=== PATIENT | male | born 1960 | race Caucasian/White ===

== ENCOUNTER 2021-12-20 12:29 | Emergency (ER) | payer OTHER ==
[~2021-12-20] VITALS: Ht 175.3 cm; Wt 82.7 kg
[2021-12-20 12:30] VITALS: BP 131/94
[2021-12-20] MEDS ORDERED: KETOROLAC TROMETHAMINE 10 MG TAB PO ONE (14:30)
[2021-12-20] MEDS ORDERED: NAPR-837 PO (15:54)
== END 2021-12-20 16:02 | disposition home or self-care (01) ==
LOC: M ED 12:29
DX: M76.62 Achilles tendinitis, left leg (principal)

== ENCOUNTER → 2022-01-12 | Outpatient (CLI) | payer OTHER ==
[~2022-01-12] MED LIST: NAPR-837 PO
== END ==
LOC: M PLAIMG 14:58
PROVIDERS: ATTEND Orthopaedic Surgery Hand Surgery
DX: M79.672 Pain in left foot (principal)

== ENCOUNTER 2023-02-06 12:28 | Emergency (ER) | payer MEDICAID, OTHER ==
[~2023-02-06] VITALS: Ht 170.2 cm; Wt 80.9 kg
[2023-02-06] MEDS ORDERED: KETOROLAC 30 MG/ML 1ML VIAL IM ONE (15:45)
[2023-02-06 16:56] VITALS: BP 121/65; TEMP 97.8; O2SAT 98
== END 2023-02-06 17:08 | disposition home or self-care (01) ==
LOC: M ED 12:28
DX: M79.644 Pain in right finger(s) (principal); F12.10 Cannabis abuse, uncomplicated
CPT/HCPCS: 73140; 96372; 99283; J1885

== ENCOUNTER → 2023-03-13 | Outpatient (CLI) | payer MEDICAID | LOC: M SOG 07:50 | PROVIDERS: ATTEND Physician Assistant | DX: M79.644 Pain in right finger(s) (principal); M79.645 Pain in left finger(s); R22.32 Localized swelling, mass and lump, left upper limb ==

== ENCOUNTER 2023-04-27 08:09 | Day surgery (SDC) | payer OTHER ==
[~2023-04-27] VITALS: Ht 170.2 cm; Wt 80.7 kg
[~2023-04-27 08:09] MED LIST changes: +ceFAZolin SOD 2 GM in IV 1 EA IV ONE
[2023-04-27] MEDS ORDERED: LIDOCAINE W/EPINEPHRINE 1% 20ML VIAL XX ONE (11:00)
[2023-04-27] MEDS ORDERED: SODIUM BICARBONATE 8.4% INJ 50MEQ 50ML VIAL XX ONE (11:00)
[2023-04-27] MEDS ORDERED: LIDOCAINE 1% MDV 20ML VIAL XX ONE (12:20)
[2023-04-27] MEDS ORDERED: BACITRACIN OINTMENT 30GM TUBE As Ordered ONE (12:26)
[2023-04-27] MEDS ORDERED: OXYC1TAB23 PO (13:42)
[2023-04-27 13:54] VITALS: BP 141/100; TEMP 97.7; O2SAT 99
== END 2023-04-27 14:52 | disposition home or self-care (01) ==
LOC: M SDC 08:09
PROVIDERS: ATTEND Orthopaedic Surgery Hand Surgery
DX: M65.311 Trigger thumb, right thumb (principal); L60.8 Other nail disorders; M65.841 Other synovitis and tenosynovitis, right hand

== ENCOUNTER → 2023-06-01 | Outpatient (CLI) | payer OTHER ==
[~2023-06-01] MED LIST changes: +OXYC1TAB23 PO; -ceFAZolin SOD 2 GM in IV 1 EA IV ONE
[2023-06-01 13:15] LABS: BASO # 0.1 10^3/uL (0.0-0.2); BASO % 1.1 % (0.0-1.0); EOS # 0.1 10^3/uL (0.0-0.5); EOS % 1.6 % (0.0-3.0); HEMATOCRIT 49.7 % (42.0-52.0); HEMOGLOBIN 16.6 g/dl (13.5-17.5); LYMPH # 2.2 10^3/uL (1.5-5.0); LYMPH % 27.6 % (24.0-44.0); MEAN CORPUSCULAR HEMOGLOBIN 29.4 pg (27.0-33.0); MEAN CORPUSCULAR HGB CONC 33.4 g/dl (32.0-36.5); MONO # 0.5 10^3/uL (0.0-0.8); MONO % 6.3 % (2.0-8.0); NEUTROPHILS # 5.1 10^3/uL (1.5-8.5); PLATELET COUNT, AUTOMATED 235 10^3/uL (150-450); RED BLOOD COUNT 5.65 10^6/uL (4.30-6.10); WHITE BLOOD COUNT 8.1 10^3/uL (4.0-10.0)
[2023-06-01 13:39] LABS: ALKALINE PHOSPHATASE 91 U/L (46-116); ALT/SGPT 32 U/L (7.0-40); AST/SGOT 21 U/L (<34); BILIRUBIN,TOTAL 0.6 MG/DL (0.3-1.2); BLOOD UREA NITROGEN 20 MG/DL (9-23); CARBON DIOXIDE LEVEL 27 MMOL/L (20-31); CHLORIDE LEVEL 103 MMOL/L (98-107); CHOLESTEROL LEVEL 274 MG/DL (<200); CHOLESTEROL RISK RATIO 4.78 (<5); CREATININE FOR GFR 0.91 MG/DL (0.70-1.30); GLOMERULAR FILTRATION RATE > 60.0 (>49); GLUCOSE, FASTING 86 MG/DL (74-106); HDL CHOLESTEROL 57.3 MG/DL (>40); LDL CHOLESTEROL 184.5 MG/DL (<100); NON-HDL-C 216.7 MG/DL; POTASSIUM SERUM 4.2 MMOL/L (3.5-5.1); SODIUM LEVEL 139 MMOL/L (136-145); THYROID STIMULATING HORMONE 2.069 uIU/ML (0.55-4.78); TOTAL 25(OH) VITAMIN D 20.4 NG/ML (20.0-100.0); TOTAL PROTEIN 7.6 G/DL (5.7-8.2); TRIGLYCERIDES LEVEL 161 MG/DL (<150)
[2023-06-01 13:53] LABS: HEMOGLOBIN A1c 5.4 % (4.0-6.0)
== END ==
LOC: M PLALAB 10:19
PROVIDERS: ATTEND Nurse Practitioner Family
DX: E78.2 Mixed hyperlipidemia (principal); E55.9 Vitamin D deficiency, unspecified; F41.9 Anxiety disorder, unspecified; Z13.1 Encounter for screening for diabetes mellitus; Z12.5 Encounter for screening for malignant neoplasm of prostate

== ENCOUNTER 2023-06-27 11:12 | Day surgery (SDC) | payer OTHER ==
[~2023-06-27] VITALS: Ht 175.3 cm; Wt 81.2 kg
[~2023-06-27 11:12] MED LIST changes: +KETOROLAC 60MG 2ML VIAL As Ordered ONE; +LIDOCAINE 2% 100MG/5ML SDV (FOR ANES.) As Ordered ONE; +MIDAZOLAM INJ 2MG/2ML VIAL As Ordered ONE; +ONDANSETRON 4MG 2ML VIAL As Ordered ONE; +TUMS750C5 PO; +fentaNYL 100 MCG/2 ML INJECTION As Ordered ONE; +propofoL 200 MG/20 ML VIAL As Ordered ONE
[2023-06-27] MEDS ORDERED: LR 1,000 ML IV SCH (11:50)
[2023-06-27] MEDS ORDERED: SODIUM BICARBONATE 8.4% INJ 50MEQ 50ML VIAL XX ONE (12:15)
[2023-06-27] MEDS ORDERED: LIDOCAINE W/EPINEPHRINE 1% 20ML VIAL XX ONE (12:15)
[2023-06-27] MEDS ORDERED: BACITRACIN OINTMENT 30GM TUBE As Ordered ONE (12:35)
[2023-06-27] MEDS ORDERED: propofoL 200 MG/20 ML VIAL As Ordered ONE (13:38)
[2023-06-27 14:52] VITALS: BP 119/82; TEMP 98; O2SAT 97
== END 2023-06-27 18:08 | disposition home or self-care (01) ==
LOC: M SDC 11:12
PROVIDERS: ATTEND Orthopaedic Surgery Hand Surgery
DX: G56.01 Carpal tunnel syndrome, right upper limb (principal); M65.231 Calcific tendinitis, right forearm; F12.10 Cannabis abuse, uncomplicated; K21.9 Gastro-esophageal reflux disease without esophagitis
CPT/HCPCS: 26055; 29848; J1100; J1885; J2250; J2405; J3010

== ENCOUNTER → 2023-07-24 | Day surgery (SDC) | payer OTHER ==
[~2023-07-24] VITALS: Ht 170.2 cm; Wt 81.6 kg
[~2023-07-24] MED LIST changes: +ATOR1TAB21 PO; +BACITRACIN OINTMENT 30GM TUBE As Ordered ONE; -KETOROLAC 60MG 2ML VIAL As Ordered ONE; -LIDOCAINE 2% 100MG/5ML SDV (FOR ANES.) As Ordered ONE; +LIDOCAINE W/EPINEPHRINE 1% 20ML VIAL XX ONE; -MIDAZOLAM INJ 2MG/2ML VIAL As Ordered ONE; -ONDANSETRON 4MG 2ML VIAL As Ordered ONE; +SODIUM BICARBONATE 8.4% INJ 50MEQ 50ML VIAL XX ONE; -fentaNYL 100 MCG/2 ML INJECTION As Ordered ONE; -propofoL 200 MG/20 ML VIAL As Ordered ONE
== END | disposition home or self-care (01) ==
LOC: M SDC 06:57
PROVIDERS: ATTEND Orthopaedic Surgery Hand Surgery
DX: G56.02 Carpal tunnel syndrome, left upper limb (principal); Z53.09 Procedure and treatment not carried out because of other contraindication; R07.89 Other chest pain

== ENCOUNTER → 2023-08-29 | Outpatient (CLI) | payer MEDICARE, OTHER ==
[~2023-08-29] MED LIST changes: -BACITRACIN OINTMENT 30GM TUBE As Ordered ONE; -LIDOCAINE W/EPINEPHRINE 1% 20ML VIAL XX ONE; +NITR0.4S14 SL; -SODIUM BICARBONATE 8.4% INJ 50MEQ 50ML VIAL XX ONE
[2023-08-29 15:39] LABS: BASO # 0.1 10^3/uL (0.0-0.2); BASO % 0.8 % (0.0-1.0); EOS # 0.1 10^3/uL (0.0-0.5); EOS % 1.4 % (0.0-3.0); HEMATOCRIT 48.3 % (42.0-52.0); HEMOGLOBIN 16.3 g/dl (13.5-17.5); LYMPH # 2.5 10^3/uL (1.5-5.0); LYMPH % 29.7 % (24.0-44.0); MEAN CORPUSCULAR HEMOGLOBIN 29.5 pg (27.0-33.0); MEAN CORPUSCULAR HGB CONC 33.7 g/dl (32.0-36.5); MEAN CORPUSCULAR VOLUME 87.3 fl (80.0-96.0); MONO # 0.7 10^3/uL (0.0-0.8); MONO % 8.1 % (2.0-8.0); NEUTROPHILS % 59.6 % (36.0-66.0); PLATELET COUNT, AUTOMATED 261 10^3/uL (150-450); RED BLOOD COUNT 5.53 10^6/uL (4.30-6.10); WHITE BLOOD COUNT 8.3 10^3/uL (4.0-10.0)
[2023-08-29 16:23] LABS: THYROID STIMULATING HORMONE 2.621 uIU/ML (0.55-4.78)
[2023-08-29 16:51] LABS: HEMOGLOBIN A1c 5.5 % (4.0-6.0)
[2023-08-29 17:07] LABS: ALBUMIN 3.8 G/DL (3.2-5.2); ALKALINE PHOSPHATASE 97 U/L (46-116); ALT/SGPT 41 U/L (7.0-40); AST/SGOT 31 U/L (<34); BILIRUBIN,TOTAL 0.7 MG/DL (0.3-1.2); BLOOD UREA NITROGEN 18 MG/DL (9-23); CALCIUM LEVEL 9.3 MG/DL (8.3-10.6); CARBON DIOXIDE LEVEL 29 MMOL/L (20-31); CHLORIDE LEVEL 102 MMOL/L (98-107); CHOLESTEROL LEVEL 183 MG/DL (<200); CHOLESTEROL RISK RATIO 3.46 (<5); CREATININE FOR GFR 1.01 MG/DL (0.70-1.30); GLOMERULAR FILTRATION RATE > 60.0 (>49); GLUCOSE, FASTING 79 MG/DL (74-106); HDL CHOLESTEROL 52.8 MG/DL (>40); LDL CHOLESTEROL 101.2 MG/DL (<100); MAGNESIUM LEVEL 1.8 MG/DL (1.8-2.4); NON-HDL-C 130.2 MG/DL; SODIUM LEVEL 138 MMOL/L (136-145); TOTAL PROTEIN 7.4 G/DL (5.7-8.2); TRIGLYCERIDES LEVEL 145 MG/DL (<150)
== END ==
LOC: M PLALAB 12:10
PROVIDERS: ATTEND Internal Medicine Cardiovascular Disease
DX: R07.9 Chest pain, unspecified (principal); I11.0 Hypertensive heart disease with heart failure; I50.9 Heart failure, unspecified; E78.2 Mixed hyperlipidemia; I48.91 Unspecified atrial fibrillation; Z79.899 Other long term (current) drug therapy

== ENCOUNTER 2023-09-21 07:35 | Day surgery (SDC) | payer OTHER ==
[~2023-09-21] VITALS: Ht 170.2 cm; Wt 83.2 kg
[2023-09-21] MEDS ORDERED: LIDOCAINE 2% 100MG/5ML SDV (FOR ANES.) As Ordered ONE (08:56)
[2023-09-21] MEDS ORDERED: fentaNYL 100 MCG/2 ML INJECTION As Ordered ONE (08:56)
[2023-09-21] MEDS ORDERED: propofoL 200 MG/20 ML VIAL As Ordered ONE (08:56)
[2023-09-21] MEDS ORDERED: MIDAZOLAM INJ 2MG/2ML VIAL As Ordered ONE (08:56)
[2023-09-21] MEDS ORDERED: ONDANSETRON 4MG 2ML VIAL As Ordered ONE (08:56)
[2023-09-21] MEDS ORDERED: LR 1,000 ML IV SCH ×2 (09:40→11:35)
[2023-09-21] MEDS ORDERED: ceFAZolin SOD 2 GM in IV 1 EA IV ONE (10:00)
[2023-09-21] MEDS ORDERED: BACITRACIN OINTMENT 30GM TUBE As Ordered ONE (10:32)
[2023-09-21] MEDS ORDERED: ONDANSETRON 4MG 2ML VIAL IV PRN (11:35)
[2023-09-21] MEDS ORDERED: HYDROMORPHONE HCL 0.5 MG/ 0.5 ML SYRINGE IV PRN (11:35)
[2023-09-21] MEDS ORDERED: fentaNYL 100 MCG/2 ML INJECTION IV PRN (11:35)
[2023-09-21] MEDS ORDERED: oxyCODONE 5MG TAB PO PRN (11:35)
[2023-09-21] MEDS ORDERED: KETOROLAC 60MG 2ML VIAL As Ordered ONE (11:38)
[2023-09-21] MEDS: LEVALBUTEROL 1.25MG 0.5ML CONCENTRATE NEB INH STA (12:16)
[2023-09-21 13:02] VITALS: BP 119/62; TEMP 97.9; O2SAT 97
== END 2023-09-21 15:36 | disposition home or self-care (01) ==
LOC: M SDC 07:35
PROVIDERS: ATTEND Orthopaedic Surgery Hand Surgery
DX: G56.02 Carpal tunnel syndrome, left upper limb (principal); M65.322 Trigger finger, left index finger; E78.5 Hyperlipidemia, unspecified; K21.9 Gastro-esophageal reflux disease without esophagitis; F41.9 Anxiety disorder, unspecified; Z79.899 Other long term (current) drug therapy
CPT/HCPCS: 26055; 29848; J0665; J1100; J1885; J2250; J2405; J3010

== ENCOUNTER → 2023-12-06 | Outpatient (CLI) | payer OTHER | LOC: M SOG 07:54 | PROVIDERS: ATTEND Physician Assistant | DX: M25.561 Pain in right knee (principal); M17.11 Unilateral primary osteoarthritis, right knee ==

== ENCOUNTER 2024-04-21 09:07 | Day surgery (SDC) | payer OTHER ==
[~2024-04-21] VITALS: Ht 170.2 cm; Wt 78.0 kg
[~2024-04-21 09:07] MED LIST changes: +ASPI81CH48 PO; +CARV12.5 PO; +CLOP75TA2 PO; +ROSU20TA86 PO
[2024-04-21] MEDS ORDERED: LR 1,000 ML IV SCH (09:10)
[2024-04-21] MEDS: SODIUM BICARBONATE 8.4% INJ 50MEQ 50ML VIAL XX ONE (10:30)
[2024-04-21] MEDS: LIDOCAINE W/EPINEPHRINE 1% 20ML VIAL XX ONE (10:30)
[2024-04-21] MEDS ORDERED: LIDOCAINE W/EPINEPHRINE 1% 20ML VIAL As Ordered ONE (10:54)
[2024-04-21] MEDS ORDERED: SODIUM BICARBONATE 8.4% INJ 50MEQ 50ML VIAL As Ordered ONE (10:55)
[2024-04-21] MEDS: diazePAM 5MG TABLET PO ONE (11:11)
[2024-04-21] MEDS: POLYSPORIN OPHTH OINT 3.5 GM As Ordered ONE (12:44)
[2024-04-21] MEDS ORDERED: BACITRACIN OINTMENT 30GM TUBE As Ordered ONE (13:11)
[2024-04-21 13:33] VITALS: BP 164/95; TEMP 98.1; O2SAT 97
== END 2024-04-21 13:52 | disposition home or self-care (01) ==
LOC: M SDC 09:07
PROVIDERS: ATTEND Orthopaedic Surgery Hand Surgery
DX: M65.312 Trigger thumb, left thumb (principal); Z79.899 Other long term (current) drug therapy; Z95.1 Presence of aortocoronary bypass graft; Z79.02 Long term (current) use of antithrombotics/antiplatelets

== ENCOUNTER → 2024-09-30 | Outpatient (CLI) | payer OTHER | LOC: M RAD 08:32 | PROVIDERS: ATTEND Urology | DX: N40.0 Benign prostatic hyperplasia without lower urinary tract symptoms (principal) ==